=== PATIENT | female | born 1990 | race Caucasian/White ===

== ENCOUNTER 2016-09-12 06:41 | Day surgery (SDC) | payer MEDICARE ==
[2016-09-11 13:27] LABS: HEMATOCRIT 33.2 % (36.0-48.0); HEMOGLOBIN 10.7 g/dL (12-16); MCH 24.8 pg (26.0-34.0); MCHC 32.2 g/dL (31.0-37.0); PLATELET COUNT 191 10x3/uL (130-400); RBC 4.31 10x6/uL (4.00-5.40); RDW 15.7 % (11.5-14.5); WBC 6.3 10x3/uL (4.8-10.8)
[~2016-09-12] VITALS: Ht 157.5 cm; Wt 67.6 kg
--- NOTE | ~2016-09-12 | OP ---
PATIENT NAME: AIRAM ALFONSO MEDICAL RECORD: [id number] :91 LOCATION:[facility] ADMISSION DATE: SURGEON: DAVID CROSS DATE OF OPERATION: 09/12/2016 SURGEON: David Cross DPM. PREOPERATIVE DIAGNOSIS: Hallux abductovalgus, left foot. POSTOPERATIVE DIAGNOSIS: Hallux abductovalgus, left foot. PROCEDURE: Adal bunionectomy, left foot. ANESTHESIA: Local with monitored anesthesia care. HEMOSTASIS: Pneumatic ankle tourniquet inflated to 250 mmHg. ESTIMATED BLOOD LOSS: Minimal. MATERIALS: One 3.0 mm cannulated [employer] medical screw. INJECTABLES: 20 cc of 0.5% bupivacaine plain. The patient has a longstanding history of pain associated with a bunion deformity of the left foot. She has tried wider shoes to no avail. She is here today for surgical correction of the left foot deformity. I have discussed with her and her mother risks and benefits of the procedure. Complications were reviewed. Her questions were answered. She was appropriately consented for Adal bunionectomy of the left foot. The patient was brought in the operating room and placed on the operating table in supine position. A timeout was called with Dr. Cross, who identified the patient, the surgical site, and the surgery to be performed. Once appropriate anesthesia was obtained, the foot was prepped and draped in the usual aseptic manner. The pneumatic ankle tourniquet was inflated to 250 mmHg around the well-padded left ankle. Attention was directed to the dorsal aspect of the first metatarsophalangeal joint of the left foot where a 6-cm linear incision was made just medial to the extensor hallucis longus tendon. This incision was carried deep through soft tissue with care being taken to retract all vital neurovascular structures. All bleeders were cauterized along the way. Through this incision, the first intermetatarsal space was entered utilizing both blunt and sharp dissection. The conjoined tendon of the adductor hallucis muscle belly was then identified at the base of the proximal phalanx and was sharply transected. The fibular sesamoidal ligament was also identified at the lateral aspect of the first metatarsal head and this was sharply transected. Attention was then redirected to the dorsal aspect of the first metatarsophalangeal joint where the periosteum was reflected from the base of the proximal phalanx and the head of the first metatarsal. The hypertrophied medial eminence of the first metatarsal head was then exposed. Utilizing a sagittal saw, the hypertrophied medial eminence was resected. Next, utilizing a sagittal saw, a V-shaped osteotomy was created in the head of the first metatarsal. The apex of the V was oriented distally. OPERATIVE REPORT [id number] AIRAM ALFONSO This was a through and through osteotomy. The capital fragment was translocated laterally and impacted upon the first metatarsal shaft. Next, utilizing manufacture's recommended technique, one 3.0 cannulated [employer] medical screw was placed across the osteotomy. All remaining bone from the medial aspect of the first metatarsal shaft was then resected with a sagittal saw. Any remaining sharp bony prominences were resected with sagittal saw and rongeur. The surgical site was then irrigated with copious amounts of normal sterile saline. The periosteum was then reapproximated and coapted utilizing 3-0 Vicryl. The subQ was then reapproximated and coapted utilizing 3-0 Vicryl. The skin was then reapproximated and coapted utilizing 4-0 nylon. A dressing consisting of Xeroform, 4 x 4, Kerlix, and an Rm bandage was applied to the left foot. The pneumatic ankle tourniquet was deflated and capillary refill time was noted to be immediate to all digits of the left foot. The patient tolerated the procedure and anesthesia well. She will be discharged home with instructions to ice and elevate the left foot. She has a boot to help offload the lower extremity. She was provided with prescriptions for Rhine 7.5/325 and Phenergan 25 mg. She has my cell phone number for any after hour difficulties. We will follow up with her next week and there were no complications with this procedure. TRANSINT:[id number] Voice Confirmation ID: [id number] DOCUMENT ID: [id number] DAVID CROSS CC: [id number] DICTATION DATE: 09/12/161609 KARATE TEACHER: 09/12/16 2354 [facility] 09/12/16 [id number] [place] [address]
[~2016-09-12 06:41] MED LIST: CELEXA20 MG PO; FLOVENT HFA 22012 GM INH; FLUTICASONE PRO16 GM NASAL; PROAIR HFA8.5 GM INH; TRI-SPRINTEC1 TAB PO
[2016-09-12] MEDS ORDERED: SINGULAIR10 MG PO (12:11)
[2016-09-12 12:12] VITALS: BP 93/59; Ht 157.5 cm; Wt 67.6 kg
[2016-09-12 12:35] LABS: HCG URINE NEGATIVE (NEGATIVE)
--- NOTE | 2016-09-12 15:48 | NUR ---
1545 BACK FROM LEFT BUNIONECTOMY. SPEAKS WITH A STUTTER.RESP EVEN AND NONLABORED,SLEEPY. LEFT FOOT DRESSING C/D/I ICED AND ELEVATED TOES TINGLIY AND ELEVATED ON PILLOW.CAPILLARY REFILL IMMEDIATE TO NAIL BEDS.
--- NOTE | 2016-09-12 16:34 | NUR ---
1635--IV DC'D, PT DRESSING AT THIS TIME. TAMICA LEE
--- NOTE | 2016-09-12 16:58 | NUR ---
1650--DISCHARGE INSTRUCTIONS GIVEN, PT VERBALIZES UNDERSTANDING. PT OFF UNIT VIA [facility]. TAMICA LEE
== END 2016-09-12 16:50 | disposition home or self-care (01) ==
LOC: D.OPS 06:41
PROVIDERS: Anesthesiology; Podiatrist
DX: M20.12 Hallux valgus (acquired), left foot (principal); Z01.812 Encounter for preprocedural laboratory examination

== ENCOUNTER → 2019-09-07 09:47 | Outpatient (CLI) | payer MEDICARE ==
[2016-09-12 12:12] VITALS: BMI 27.3
[~2019-09-07 09:47] MED LIST changes: +SINGULAIR10 MG PO
== END | disposition home or self-care (01) ==
LOC: D.LABREF 09:47
PROVIDERS: ATTEND Internal Medicine Pulmonary Disease
DX: Z11.59 Encounter for screening for other viral diseases (principal)

== ENCOUNTER → 2019-09-09 09:35 | Day surgery (SDC) | payer MEDICARE ==
[~2019-09-09] VITALS: Ht 154.9 cm; Wt 65.8 kg
[2019-09-09 10:11] LABS: HCG SERUM NEGATIVE (NEGATIVE)
[2019-09-09 10:34] LABS: HEMATOCRIT 35.7 % (36.0-48.0); HEMOGLOBIN 11.8 g/dL (12-16); MCH 26.6 pg (26.0-34.0); MCHC 33.1 g/dL (31.0-37.0); MCV 80.6 fL (80.0-100.0); PLATELET COUNT 219 10x3/uL (130-400); RBC 4.43 10x6/uL (4.00-5.40); RDW 14.7 % (11.5-14.5); WBC 5.6 10x3/uL (4.8-10.8)
[2019-09-09 11:26] VITALS: BP 126/82; Ht 154.9 cm; Wt 65.8 kg
== END | disposition home or self-care (01) ==
LOC: D.OPS 09:35 → D.PAN 12:00
PROVIDERS: Anesthesiology; ATTEND Podiatrist
DX: M79.671 Pain in right foot (principal); M20.21 Hallux rigidus, right foot; Z53.9 Procedure and treatment not carried out, unspecified reason

== ENCOUNTER → 2019-09-24 13:32 | Outpatient (CLI) | payer MEDICARE ==
[2019-09-09 11:26] VITALS: BMI 27.4
== END | disposition home or self-care (01) ==
LOC: D.RAD 13:32
PROVIDERS: ATTEND Family Medicine
DX: J84.9 Interstitial pulmonary disease, unspecified (principal)